=== PATIENT | male | born 1980 | race African-American/Black ===

== ENCOUNTER 2017-04-30 14:33 | Emergency (ER) | payer SELFPAY ==
[~2017-04-30] VITALS: Ht 180.3 cm; Wt 109.0 kg
[2017-04-30 16:07] VITALS: BP 133/82
[2017-04-30] MEDS ORDERED: GLUCAGON,HUMAN RECOMBINANT 1MG/VIAL IM ONE (17:00)
== END 2017-04-30 17:57 | disposition home or self-care (01) ==
LOC: ER 14:59
DX: T17.228A Food in pharynx causing other injury, initial encounter (principal); J02.9 Acute pharyngitis, unspecified; X58.XXXA Exposure to other specified factors, initial encounter; Y93.89 Activity, other specified; Y92.89 Other specified places as the place of occurrence of the external cause; Y99.8 Other external cause status
CPT/HCPCS: 96372; 99283; J1610